=== PATIENT | male | born 1975 | race Caucasian/White ===

== ENCOUNTER 2016-11-28 16:55 | Emergency (ER) | payer OTHER ==
[2016-11-28 17:06] VITALS: BP 136/77; PULSE 86; RESP 18; TEMP 98.7
--- NOTE | 2016-11-28 17:19 | ED ---
General Adult HPI - General Chief complaint: Extremity Injury, Lower Stated complaint: Broken Left Leg Time Seen by Provider: 11/28/16 17:12 Source: patient, RN notes reviewed Mode of arrival: wheelchair Limitations: no limitations - History of Present Illness Initial comments: Patient is a 41-year-old male who presents emergency room today with chief complaint of pain locally to the left ankle that it hurt with an injury when he was trying to get off of a boat. He states he slipped and twisted the left ankle is expressing pain to the upper medial aspect of his left ankle. He admits that he broke this menstrual visual. States she's not been able to bear weight or ambulate. He does admit to pain locally to the area worse with movements of both laboratory dorsiflexion. He denies any complaints or associated symptoms. Patient states he is currently focal abdominal pain medicine. Patient denies any recent fever, chills, shortness of breath, chest pain, back pain, abdominal pain, nausea or vomiting, numbness or tingling, dysuria or hematuria, constipation or diarrhea, headaches or visual changes, or any other complaints. - Related Data Previous Rx's Medication Instructions Recorded Ibuprofen [Motrin] 600 mg PO Q6HR PRN #30 day 11/28/16 Allergies Allergy/AdvReac Type Severity Reaction Status Date / Time No Known Allergies Allergy Verified 11/28/16 17:06 Review of Systems ROS Statement: Those systems with pertinent positive or pertinent negative responses have been documented in the HPI. ROS Other: All systems not noted in ROS Statement are negative. Past Medical History Past Medical History: No Reported History History of Any Multi-Drug Resistant Organisms: None Reported Past Surgical History: No Surgical Hx Reported Past Psychological History: No Psychological Hx Reported Smoking Status: Former smoker Past Alcohol Use History: Occasional Past Drug Use History: None Reported General Exam - General Exam Comments Initial Comments: General: The patient is awake and alert, in no distress, and does not appear acutely ill. Neck: The neck is supple, there is no tenderness or JVD. Cardiovascular: There is a regular rate and rhythm. No murmur, rub or gallop is appreciated. Respiratory: Lungs are clear to auscultation, respirations are non-labored, breath sounds are equal. No wheezes, stridor, rales, or rhonchi. Musculoskeletal: Patient has mild swelling to left ankle. Shows limited range of motion both plantar and dorsiflexion due to pain. Sensations are intact. No tenderness down to the left foot or the toes. Patient has no tenderness to the fibular head. He is locally tender to the medial aspect of the left ankle just above the malleolus. No point tenderness. Pulses equal bilaterally 2+. Neurological: A&O x 3. CN II-XII intact, There are no obvious motor or sensory deficits. Coordination appears grossly intact. Speech is normal. Skin: Skin is warm and dry and no rashes or lesions are noted. Psychiatric: Normal mood and affect. Limitations: no limitations Course Vital Signs 11/28/16 17:04 Temperature 98.7 F Pulse Rate 86 Respiratory 18 Rate Blood Pressure 136/77 O2 Sat by Pulse 99 Oximetry Medical Decision Making - Medical Decision Making X-rays reviewed and are negative patient will be given [place] wrap here in emergency room patient was given a prescription for crutches to use weightbearing as tolerated. Advised most likely ankle sprain to follow-up with his orthopedic doctor. Advised return for any other concerns. Advised ice elevate the affected area. Disposition Clinical Impression: Ankle sprain Disposition: HOME SELF-CARE Condition: Good Instructions: Ankle Sprain (ED) Additional Instructions: Please continue to ice elevate the affected areas 4 times daily for 20 minutes at a time. Please use crutches with weightbearing as tolerated. Please follow- up with the orthopedic doctor over the next 7-10 days symptoms are not improving. Prescriptions: Ibuprofen [Motrin] 600 mg PO Q6HR PRN #30 day PRN Reason: Pain Referrals: Nonstaff,Physician [Primary Care Provider] - 1-2 days Time of Disposition: 18:04
--- NOTE | 2016-11-28 17:40 | XR ---
EXAMINATION TYPE: XR tibia fibula LT DATE OF EXAM: 11/28/2016 COMPARISON: NONE HISTORY: Pain TECHNIQUE: 4 views FINDINGS: I see no fracture nor dislocation. Knee joint and ankle joint appear intact. There is mild sclerosis in the distal tibial metaphysis that could relate to an old healed fracture. IMPRESSION: No acute abnormality of the left tibia and fibula.
--- NOTE | 2016-11-28 17:41 | XR ---
EXAMINATION TYPE: XR ankle limited LT DATE OF EXAM: 11/28/2016 COMPARISON: NONE HISTORY: Pain TECHNIQUE: 2 views FINDINGS: I see no fracture nor dislocation. Ankle mortise is anatomic. There is some sclerosis of th e distal tibia and probably calcification of the interosseous ligament that could relate to an old in jury. There is a plantar calcaneal spur. IMPRESSION: No acute abnormality of the left ankle.
== END 2016-11-28 18:12 | disposition home or self-care (01) ==
LOC: EC 16:55
DX: S93.402A Sprain of unspecified ligament of left ankle, initial encounter (principal); Z87.891 Personal history of nicotine dependence; Z79.899 Other long term (current) drug therapy; W01.0XXA Fall on same level from slipping, tripping and stumbling without subsequent striking against object, initial encounter; Y92.89 Other specified places as the place of occurrence of the external cause
CPT/HCPCS: 99283